=== PATIENT | male | born 1945 | race Caucasian/White ===

== ENCOUNTER 2016-08-27 09:47 | Emergency (ER) | payer OTHER, MEDICAID ==
[~2016-08-27] VITALS: Wt 78.0 kg
[2016-08-27] MEDS ORDERED: AZIT250T94 PO (10:54)
[2016-08-27] MEDS ORDERED: BENZ100C70 PO (10:55)
--- NOTE | 2016-08-27 11:01 | ERD ---
ER Documentation Chief Complaint Date/Time DATE: 08/27/16 TIME: 10:55 Chief Complaint cough and flu like symptoms for the past week HPI Patient is a 71-year-old male with PMHX of DM, HTN who presents the emergency department with a cough and rhinorrhea 1 week. Patient states that his cough is productive with clear phlegm production. Patient states that he has chest discomfort only when coughing. Patient denies any chest pain at rest or shortness of breath. Patient states that his cough is worse at night. Patient denies any wheezing. Patient states that he's been taking Robitussin for his cough which has been helping. Patient also reports some rhinorrhea which is now resolved. Patient denies any body aches, throat pain, ear pain, abdominal pain , nausea, vomiting, fever or chills. +Sick contacts. No recent travel. Patient states he received a flu vaccine 2 months ago. ROS All systems reviewed and are negative except as per history of present illness. Medications Home Meds Active Scripts Benzonatate* (Tessalon Perle*) 100 Mg Capsule, 100 MG PO Q8H Y for COUGH, #20 CAP Prov:YESENIA FAIRCHILD PA-C 08/27/16 Azithromycin* (Zithromax*) 250 Mg Tablet, 250 MG PO .ZPACK DIRECTED, #6 TAB TAKE 500 MG (2 TABS) THE FIRST DAY THEN 250 MG (1 TAB) DAYS 2-5 Prov:YESENIA FAIRCHILD PA-C 08/27/16 PMhx/Soc Medical and Surgical Hx: pt denies Surgical Hx History of Surgery: No Anesthesia Reaction: No Hx Neurological Disorder: No Hx Respiratory Disorders: No Hx Cardiac Disorders: Yes (htn) Hx Psychiatric Problems: No Hx Miscellaneous Medical Probl: Yes (dm) Hx Alcohol Use: No Hx Substance Use: No Hx Tobacco Use: No Smoking Status: Never smoker FmHx Family History: diabetes Physical Exam Vitals Vital Signs Date Time Temp Pulse Resp B/P Pulse Ox O2 Delivery O2 Flow Rate FiO2 08/27/16 12:26 98.3 72 18 172/82 98 Room Air 08/27/16 09:51 98.9 87 20 150/71 95 Physical Exam GENERAL: Well-developed, well-nourished male. Appears in no acute respiratory distress. No nasal flaring, no grunting, no abdominal retractions. HEAD: Normocephalic, atraumatic. No deformities or ecchymosis. EYE: Pupils equal, round, and reactive to light. EOMs intact. No conjunctival erythema. No scleral icterus. No eye discharge. ENT: External ear without any masses or tenderness. Auditory canals clear bilaterally. TM visualized bilaterally, non-erythematous, non-bulging. Nasal mucosa pink with no discharge. Oropharynx is pink without any tonsillar erythema or exudates. No uvula deviation. No kissing tonsils. NECK: Supple. No lymphadenopathy or thyromegaly. No meningismus. Trachea midline. LUNG: Clear to auscultation bilaterally. No rhonchi, wheezing, rales or coarse breath sounds. HEART: Regular rate and rhythm. No murmurs, rubs or gallops. ABDOMEN: Soft, nontender, and nondistended. Positive bowel sounds in all four quadrants. No rebound tenderness, no guarding. (-) McBurney's point tenderness. No CVA tenderness. BACK: No midline tenderness. EXTREMITIES: Equal pulses bilaterally. No peripheral clubbing, cyanosis or edema. No unilateral leg swelling. NEUROLOGIC: Alert and oriented to person, place and time. Moving all four extremities. 5/5 strength in all extremities. Normal speech. Steady gait. (-) Brudzinski sign- no flexion of the hips and knees noted with neck flexion. (-) Kernigs sign- patient able to extend knee to 180 degrees with hip flexion, no hamstring stiffness noted. SKIN: Normal color. Warm and dry. No rashes or lesions. Procedures/MDM ED COURSE: The patient was stable throughout ED course. I kept the patient and/or family informed of laboratory and diagnostic imaging results throughout the ED course. EKG: Read by Dr. Borges, attending physician. EKG shows normal sinus rhythm at a rate of 70 bpm. No arrhythmias, acute ST elevations or T wave changes were noted. DIAGNOSTIC IMAGING: Read by radiologist. DIAGNOSTIC IMAGING REPORT Patient: RUBI CARTAGENA : 1945 Age: 71 Sex: M MR #: [id number] DOS: 08/27/16 1043 Ordering MD: YESENIA FAIRCHILD PA-C Location: [facility] Room/Bed: PROCEDURE: XR Chest AP portable CLINICAL INDICATION: Cough x1 week TECHNIQUE: An AP portable radiograph of the chest was submitted. COMPARISON: None. FINDINGS: Support Hardware: None Cardiovascular: The cardiovascular silhouette appears unremarkable. Lung King: The lung king appear clear with no nodule, alveolar infiltrate, for a interstitial prominence evident. Pleural Spaces: No pneumothorax or pleural effusion is identified. Osseous Structures: The osseous structures appear intact. Soft Tissues: The soft tissues appear generous. IMPRESSION: Unremarkable portable chest. Physician Mendy Date Time Electronically viewed and signed by Physician Mendy on 08/27/2016 11:22 RH/ CC: YESENIA FAIRCHILD PA-C MEDICAL DECISION MAKING: This is a 71-year-old male who presents with a cough 1 week. Vital signs were reviewed. Patient is afebrile. Patient is not hypoxic. Lung exam was normal. Cardiac exam was normal. EKG was within normal limits. CXR was negative. Given these findings, the patient's presentation is most consistent with acute bronchitis. I have a much lower clinical concern for bacterial infections including pneumothorax, pneumonia, TB, influenza, pertussis, acute otitis media , strep pharyngitis. PRESCRIPTIONS: Z-juan, Tessalmariam riddlees DISCHARGE: At this time, patient is stable for discharge and outpatient management. Adequate hydration advised. I have instructed the patient to follow-up with his/ her primary care physician in 2-3 days. I have instructed the patient to promptly return to the ER at any time for any new or worsening symptoms including increased pain, fever, difficulty breathing, ongoing wheezing or retractions. The patient and/or family expressed understanding of and agreement with this plan. All questions were answered. Home care instructions were provided. Patients blood pressure was elevated (>120/80) but appears stable without evidence of hypertensive emergency, hypertensive urgency or end-organ failure. I had discussion with the patient about the risks of hypertension. I have advised the patient to follow up with his/her primary care physician for outpatient monitoring and treatment for hypertension in 2-3 days. I have instructed the patient to return to the ER for any new or worsening symptoms including chest pain, shortness of breath, headache, blurred vision, confusion, nausea, vomiting or LOC. Departure Diagnosis: Primary Impression: Acute bronchitis Bronchitis organism: unspecified organism Qualified Code: J20.9 - Acute bronchitis, unspecified organism Condition: Stable Patient Instructions: Acute Bronchitis Additional Instructions: Call your primary care doctor TOMORROW for an appointment during the next 1-2 days.See the doctor sooner or return here if your condition worsens before your appointment time. YESENIA FAIRCHILD PA-C Aug 27, 2016 11:01
--- NOTE | 2016-08-27 11:22 | RADRPT ---
PROCEDURE: XR Chest AP portable CLINICAL INDICATION: Cough x1 week TECHNIQUE: An AP portable radiograph of the chest was submitted. COMPARISON: None. FINDINGS: Support Hardware: None Cardiovascular: The cardiovascular silhouette appears unremarkable. Lung Waterman: The lung waterman appear clear with no nodule, alveolar infiltrate, for a interstitial pr ominence evident. Pleural Spaces: No pneumothorax or pleural effusion is identified. Osseous Structures: The osseous structures appear intact. Soft Tissues: The soft tissues appear generous. IMPRESSION: Unremarkable portable chest. Physician Mendy Date Time Electronically viewed and signed by Wolf Alvarenga Physician on 08/27/2016 11:22 /
[2016-08-27 12:26] VITALS: BP 172/82; PULSE 72; RESP 18; TEMP 98.3
== END 2016-08-27 12:27 | disposition home or self-care (01) ==
LOC: FTE 09:47
DX: J20.9 Acute bronchitis, unspecified (principal); I10 Essential (primary) hypertension; E11.9 Type 2 diabetes mellitus without complications
CPT/HCPCS: 71010; 93005

== ENCOUNTER 2017-05-09 09:17 | Emergency (ER) | payer OTHER, MEDICAID ==
[~2017-05-09] VITALS: Wt 80.5 kg
[~2017-05-09 09:17] MED LIST: AZIT250T94 PO; BENZ100C70 PO
[2017-05-09] MEDS ORDERED: SOD CHLORIDE 0.9% 1,000 ML IV STA (09:56)
[2017-05-09] MEDS ORDERED: BELLADONNA/PHENOBARBITAL TAB PO STA (09:56)
[2017-05-09] MEDS ORDERED: FAMOTIDINE 20 MG TAB PO STA (09:56)
[2017-05-09] MEDS ORDERED: KETOROLAC 15 MG INJ IV STA (09:56)
[2017-05-09] MEDS ORDERED: ONDANSETRON 4 MG INJ IV STA (09:56)
[2017-05-09] MEDS ORDERED: LIDOCAINE/MYLANTA 40 ML BTL PO STA (09:56)
[2017-05-09 10:21] LABS: BASOPHIL # 0.1 10^3/ul (0.0-0.1); BASOPHILS % 1.4 % (0.0-2.0); EOSINOPHILS # 0.3 10^3/ul (0.0-0.5); EOSINOPHILS % 3.9 % (0.0-7.0); HEMATOCRIT 41.2 % (42.0-52.0); HEMOGLOBIN 13.5 g/dl (14.0-18.0); LYMPHOCYTES # 1.2 10^3/ul (0.8-2.9); LYMPHOCYTES % 16.6 % (15.0-51.0); MEAN CORPUSCULAR HEMOGLOBIN 29.4 pg (29.0-33.0); MEAN CORPUSCULAR HGB CONC 32.8 g/dl (32.0-37.0); MEAN CORPUSCULAR VOLUME 89.8 fl (82.0-101.0); MONOCYTE # 0.6 10^3/ul (0.3-0.9); MONOCYTES % 9.2 % (0.0-11.0); NEUTROPHIL # 4.7 10^3/ul (1.6-7.5); NEUTROPHILS % 68.5 % (39.0-77.0); PLATELET COUNT 243 10^3/UL (140-415); RED BLOOD COUNT 4.59 10^6/ul (4.70-6.10); RED CELL DISTRIBUTION WIDTH 12.9 % (11.5-14.5); WHITE BLOOD COUNT 6.9 10^3/ul (4.8-10.8)
[2017-05-09 10:27] LABS: ADD UMIC YES; UR ASCORBIC ACID NEGATIVE (NEGATIVE); UR BILIRUBIN (Dip) NEGATIVE (NEGATIVE); UR BLOOD (Dip) 2+ mg/dL (NEGATIVE); UR CLARITY CLEAR (CLEAR); UR COLOR YELLOW (YELLOW); UR GLUCOSE (Dip) NEGATIVE (NEGATIVE); UR KETONES (Dip) NEGATIVE (NEGATIVE); UR LEUKOCYTE ESTERASE (Dip) NEGATIVE Leu/ul (NEGATIVE); UR NITRITE (Dip) NEGATIVE (NEGATIVE); UR RBC 1 /HPF (0-5); UR SPECIFIC GRAVITY (Dip) 1.018 (1.003-1.030); UR TOTAL PROTEIN (Dip) NEGATIVE (NEGATIVE); UR UROBILINOGEN (Dip) 1+ mg/dL (NEGATIVE)
[2017-05-09 10:44] LABS: ALANINE AMINOTRANSFERASE 17 IU/L (13-69); ALBUMIN 3.8 g/dl (3.3-4.9); ALBUMIN/GLOBULIN RATIO 1.08; ALKALINE PHOSPHATASE 83 IU/L (42-121); ANION GAP 12 (8-16); ASPARTATE AMINO TRANSFERASE 16 IU/L (15-46); BILIRUBIN,INDIRECT 0.4 mg/dl (0-1.1); BILIRUBIN,TOTAL 0.4 mg/dl (0.2-1.3); BLOOD UREA NITROGEN 13 mg/dl (7-20); CALCIUM 9.1 mg/dl (8.4-10.2); CARBON DIOXIDE 28 mmol/L (21-31); CHLORIDE 104 mmol/L (97-110); CREATININE 0.99 mg/dl (0.61-1.24); GLUCOSE 203 mg/dl (70-220); POTASSIUM 3.9 mmol/L (3.5-5.1); SODIUM 140 mmol/L (135-144); TOTAL PROTEIN 7.3 g/dl (6.1-8.1)
[2017-05-09 11:05] LABS: TROPONIN-I < 0.012 ng/ml (0.00-0.12)
[2017-05-09] MEDS ORDERED: ACAR25TA8 PO (11:10)
[2017-05-09] MEDS ORDERED: BENA5TAB2 PO (11:10)
[2017-05-09] MEDS ORDERED: ATOR10TA65 PO (11:13)
[2017-05-09] MEDS ORDERED: ONDA-43 PO (12:38)
[2017-05-09] MEDS ORDERED: MAG355OR14 PO (12:38)
[2017-05-09] MEDS ORDERED: FAMO40TA52 PO (12:38)
[2017-05-09 12:52] VITALS: BP 132/85; PULSE 67; RESP 29
--- NOTE | 2017-05-09 14:03 | ERD ---
ER Documentation Chief Complaint Date/Time DATE: 05/09/17 TIME: 13:56 Chief Complaint ap x 11days, worsen with food HPI 71-year-old man complains of burning epigastric abdominal discomfort 11 days, precipitated by p.o. intake. He has had similar episodes in the past denies recent upper endoscopy, no weight loss, no blood per rectum or melena, no vomiting or diarrhea. Patient does complain of nausea. Patient denies chest pain or shortness of breath, no fevers or chills, no recent antibiotic use or travel. ROS All systems reviewed and are negative except as per history of present illness. Medications Home Meds Active Scripts Ondansetron Hcl* (Zofran*) 4 Mg Tab, 4 MG PO TID Y for NAUSEA AND OR VOMITING, # 12 TAB Prov:LINDSAY BLOOD MD 05/09/17 Famotidine* (Famotidine*) 40 Mg Tablet, 40 MG PO HS, #30 TAB Prov:LINDSAY BLOOD MD 05/09/17 Mag Hydrox/Al Hydrox/Simeth (Maalox Advanced Suspension) 355 Ml Oral.susp, 2 TSP PO TID for PAIN, #24 OZ Prov:LINDSAY BLOOD MD 05/09/17 Reported Medications Atorvastatin Calcium (Atorvastatin Calcium) 10 Mg Tablet, 10 MG PO QHS, #30 TAB 05/09/17 Acarbose* (Precose*) 25 Mg Tablet, 25 MG PO BID, TAB 05/09/17 Benazepril Hcl* (Benazepril Hcl*) 5 Mg Tablet, 5 MG PO DAILY, #30 TAB 05/09/17 Discontinued Scripts Benzonatate* (Tessalon Perle*) 100 Mg Capsule, 100 MG PO Q8H Y for COUGH, #20 CAP Prov:YESENIA FAIRCHILD PA-C 08/27/16 Azithromycin* (Zithromax*) 250 Mg Tablet, 250 MG PO .ZPACK DIRECTED, #6 TAB TAKE 500 MG (2 TABS) THE FIRST DAY THEN 250 MG (1 TAB) DAYS 2-5 Prov:YESENIA FAIRCHILD PA-C 08/27/16 Allergies Allergies: Coded Allergies: No Known Allergy (Unverified , 05/09/17) PMhx/Soc Hypertension, dyslipidemia, gastritis/GERD History of Surgery: No Anesthesia Reaction: No Hx Neurological Disorder: No Hx Respiratory Disorders: No Hx Cardiac Disorders: Yes (HTN) Hx Psychiatric Problems: No Hx Miscellaneous Medical Probl: Yes (DM, cholesterol) Hx Alcohol Use: No Hx Substance Use: No Hx Tobacco Use: No Smoking Status: Never smoker FmHx Family History: No diabetes Physical Exam Vitals Vital Signs Date Time Temp Pulse Resp B/P Pulse Ox O2 Delivery O2 Flow Rate FiO2 05/09/17 12:52 67 29 132/85 100 Room Air 05/09/17 10:15 78 14 133/78 95 Room Air 05/09/17 09:20 98.2 81 18 132/66 96 Physical Exam GENERAL: Well-developed, well-nourished, well-hydrated, in no apparent distress , looks nontoxic in appearance HEENT: Moist mucous membranes, pink conjunctiva, no cervical spine tenderness or step-off deformities, no goiter, no jaundice or icterus, extraocular movements intact without pain. No submandibular induration, and no pharyngeal erythema NEURO: Alert and oriented 3, cranial nerves II through XII intact bilaterally, pupils equal round reactive to light, no focal deficits or facial asymmetry, sensation intact distally Strength 5/5 in upper and lower extremities bilaterally CARDIAC: Regular rate and rhythm, no murmurs rubs or gallops LUNGS: Clear bilaterally no wheezing crackles or stridor ABDOMEN: Soft nontender, no guarding, no rigidity, no rebound, no psoas sign no obturator sign. Normoactive bowel sounds SKIN: Warm and dry to touch, no abrasions, contusions, or hematomas, no lacerations, no ecchymosis, no target lesions, and without ulcers EXTREMITIES: No clubbing cyanosis or edema, calves are bilaterally symmetrical, no Homans sign, no popliteal cord sign. Distal pulses equal and bilateral PSYCH: Normal affect without agitation or irritability Result Diagram: 05/09/17 1000 05/09/17 1000 Results 24 hrs Laboratory Tests Test 05/09/17 10:00 White Blood Count 6.910^3/ul Red Blood Count 4.5910^6/ul Hemoglobin 13.5g/dl Hematocrit 41.2% Mean Corpuscular Volume 89.8fl Mean Corpuscular Hemoglobin 29.4pg Mean Corpuscular Hemoglobin Concent 32.8g/dl Red Cell Distribution Width 12.9% Platelet Count 80395^3/UL Mean Platelet Volume 10.0fl Neutrophils % 68.5% Lymphocytes % 16.6% Monocytes % 9.2% Eosinophils % 3.9% Basophils % 1.4% Nucleated Red Blood Cells % 0.0/100WBC Neutrophils # 4.710^3/ul Lymphocytes # 1.210^3/ul Monocytes # 0.610^3/ul Eosinophils # 0.310^3/ul Basophils # 0.110^3/ul Nucleated Red Blood Cells # 0.010^3/ul Urine Color YELLOW Urine Clarity CLEAR Urine pH 5.0 Urine Specific Noble 1.018 Urine Ketones NEGATIVEmg/dL Urine Nitrite NEGATIVEmg/dL Urine Bilirubin NEGATIVEmg/dL Urine Urobilinogen 1+mg/dL Urine Leukocyte Esterase NEGATIVELeu/ul Urine Microscopic RBC 1/HPF Urine Microscopic WBC 2/HPF Urine Hemoglobin 2+mg/dL Urine Glucose NEGATIVEmg/dL Urine Total Protein NEGATIVEmg/dl Sodium Level 140mmol/L Potassium Level 3.9mmol/L Chloride Level 104mmol/L Carbon Dioxide Level 28mmol/L Anion Gap 12 Blood Urea Nitrogen 13mg/dl Creatinine 0.99mg/dl Glucose Level 203mg/dl Calcium Level 9.1mg/dl Total Bilirubin 0.4mg/dl Direct Bilirubin 0.00mg/dl Indirect Bilirubin 0.4mg/dl Aspartate Amino Transf (AST/SGOT) 16IU/L Alanine Aminotransferase (ALT/SGPT) 17IU/L Alkaline Phosphatase 83IU/L Troponin I < 0.012ng/ml Total Protein 7.3g/dl Albumin 3.8g/dl Globulin 3.50g/dl Albumin/Globulin Ratio 1.08 Lipase 66U/L Current Medications Medications (Trade) Dose Ordered Sig/Jose Alfredo Route PRN Reason Start Time Stop Time Status Last Admin Dose Admin Sodium Chloride (NS) 1,000 ml @ 1,000 mls/hr Q1H STAT IV 05/09/17 09:56 05/09/17 10:55 DC 05/09/17 10:12 Ondansetron HCl (Zofran Inj) 4 mg ONCE STAT IV 05/09/17 09:56 05/09/17 09:58 DC 05/09/17 10:13 Famotidine (Pepcid) 40 mg ONCE STAT PO 05/09/17 09:56 05/09/17 09:58 DC 05/09/17 10:13 Miscellaneous Medication (Gi Cocktail (2)) 40 ml ONCE STAT PO 05/09/17 09:56 05/09/17 09:58 DC 05/09/17 10:13 Belladonna/ Phenobarbital () 2 tab ONCE STAT PO 05/09/17 09:56 05/09/17 09:58 DC 05/09/17 10:12 Ketorolac Tromethamine (Toradol) 15 mg ONCE STAT IV 05/09/17 09:56 05/09/17 09:58 DC 05/09/17 10:13 Procedures/MDM IV line was established patient was placed on cardiac exercise physiologist rhythm strip revealed a sinus rhythm at about 70 bpm with upright P and T waves. Patient was afebrile. EKG performed, read by me: 67 bpm, normal sinus rhythm, normal axis, no acute ST segment changes, narrow QRS complex, with good R-wave progression in precordial leads. I administered 1 L normal saline intravenously, Toradol 15 mg IV, Zofran 4 mg IV , GI cocktail 50 cc p.o., famotidine 40 mg p.o. with good response. CBC and electrolytes are normal, liver function tests were normal, troponin was negative. Urinalysis revealed RBCs and 2+ hemoglobin although otherwise clear Patient is without complaints of abdominal pain at this time and feels better, he had no flank pain or chest pain and workup here was unremarkable, I did tell him to follow-up with his PMD for repeat urine analysis, he may require outpatient workup for painless hematuria. Differential diagnoses considered, included but not limited to acute coronary syndrome, pulmonary embolism, aortic dissection, abdominal aortic aneurysm, sepsis, stroke, meningitis, encephalitis, pneumonia, appendicitis, cholecystitis , bowel obstruction, pyelonephritis, nephrolithiasis, cystitis, as well as metabolic, hematologic, and electrolyte abnormalities. As well as abscess, cellulitis, fractures, and dislocations. Patient feels much better at this time, and vital signs are normal, symptoms have improved. I did give strict instructions to return to the ED if symptoms continue or worsen, patient will otherwise follow-up with primary care physician. Patient understood instructions and agreed to plan. Disclaimer: Inadvertent spelling and grammatical errors are likely due to EHR/ dictation software use and do not reflect on the overall quality of patient care. Also, please note that the electronic time recorded on this note does not necessarily reflect the actual time of the patient encounter. Departure Diagnosis: Primary Impression: Abdominal pain Abdominal location: epigastric Qualified Code: R10.13 - Epigastric pain Additional Impression: Hematuria Hematuria type: unspecified type Qualified Code: R31.9 - Hematuria, unspecified type Condition: Good Patient Instructions: Abdominal Pain Referrals: HANK AGUILAR MD (PCP) LINDSAY BLOOD MD May 09, 2017 14:03
== END 2017-05-09 12:53 | disposition home or self-care (01) ==
LOC: E/R 09:17
DX: R10.13 Epigastric pain (principal); R31.9 Hematuria, unspecified; I10 Essential (primary) hypertension; E11.9 Type 2 diabetes mellitus without complications
CPT/HCPCS: 36415; 80053; 81001; 83690; 84484; 85025; 93005; 96374; 96375; 99284; J1885; J2405; J7030

== ENCOUNTER 2017-08-08 13:53 | Inpatient (IN) | END 2017-08-18 17:15 | disposition home health service (06) | DRG 824 ==